=== PATIENT | male | born 1965 | race Two or more races ===

== ENCOUNTER 2018-07-19 12:41 | Inpatient (IN) | payer BC ==
[~2018-07-19] VITALS: Ht 172.7 cm; Wt 83.6 kg
[2018-07-19 14:02] LABS: BASOPHIL % 0.4 % (0-2); PLATELET COUNT 232 x10^3mcL (130-400); RED CELL DISTRIBUTION WIDTH 13.3 % (11.5-14.5)
[2018-07-19 14:04] LABS: CALCIUM 9.2 mg/dL (8.5-10.1); CARBON DIOXIDE 28.9 mmol/L (21-32); CHLORIDE SERUM 104 mmol/L (98-107); GFR1 > 60 mL/min; GLUCOSE SERUM 115 mg/dL (74-106); POTASSIUM SERUM 4.2 mmol/L (3.5-5.1); SODIUM SERUM 139 mmol/L (136-145)
[2018-07-19 14:09] LABS: ALBUMIN 4.2 g/dL (3.4-5.0); ALKALINE PHOSPHATASE 79 U/L (46-116); ALT/SGPT 24 U/L (16-63); AST/SGOT 18 U/L (15-37); BILIRUBIN TOTAL 0.7 mg/dL (0.20-1.00); HDL CHOLESTEROL 43 mg/dL (40-60); LIPASE 127 IU/L (73-393); TOTAL PROTEIN, SERUM 7.8 g/dL (6.4-8.2); TRIGLYCERIDES 68 mg/dL (<150)
[2018-07-19 14:10] LABS: CHOLESTEROL 132 mg/dL (<200); CHOLESTEROL/HDL RATIO 3.1
[2018-07-19 15:48] VITALS: BP 131/86
[2018-07-19 15:52] VITALS: Ht 172.7 cm; Wt 83.6 kg
[2018-07-19] MEDS ORDERED: LIPITOR40 MG PO (16:05)
[2018-07-19 16:08] LABS: PHOSPHOROUS 3.6 mg/dL (2.5-4.9)
[2018-07-19 17:34] LABS: microscopic required? NO
[2018-07-19 17:47] LABS: UA SPECIFIC GRAVITY <=1.005 (1.005-1.035); urine erythrocyte NEGATIVE (NEGATIVE)
[2018-07-19 17:50] LABS: AMPHETAMINE QUAL UR NONE DETECTED (See below)
[2018-07-19 19:40] VITALS: BP 127/84
[2018-07-20] VITALS (7 sets, daily range): BP systolic 105–130; BP diastolic 65–84
[2018-07-20 06:54] LABS: BASOPHIL % 0.8 % (0-2); PLATELET COUNT 216 x10^3mcL (130-400)
[2018-07-20 06:59] LABS: CALCIUM 9.5 mg/dL (8.5-10.1); CHLORIDE SERUM 105 mmol/L (98-107); GFR1 > 60 mL/min; GLUCOSE SERUM 94 mg/dL (74-106); POTASSIUM SERUM 4.2 mmol/L (3.5-5.1); SODIUM SERUM 140 mmol/L (136-145)
[2018-07-20] MEDS ORDERED: NOVAPLUS L80 MG/0.8 SC (15:15)
== END 2018-07-20 17:42 | disposition short-term general hospital (02) | DRG 282 ==
LOC: ED 12:41 → DU 14:40
PROVIDERS: Specialist; ADMIT Family Medicine
DX: I21.4 Non-ST elevation (NSTEMI) myocardial infarction (principal); E78.5 Hyperlipidemia, unspecified; E11.9 Type 2 diabetes mellitus without complications; I10 Essential (primary) hypertension; Z92.21 Personal history of antineoplastic chemotherapy; Z92.3 Personal history of irradiation; Z85.89 Personal history of malignant neoplasm of other organs and systems
CPT/HCPCS: 83880; J1650; Q0092